=== PATIENT | male | born 1980 | race Caucasian/White ===

== ENCOUNTER 2022-12-19 00:49 | Day surgery (SDC) | payer OTHER, SELFPAY ==
[2022-12-16 13:59] VITALS: BMI 30.1
--- NOTE | 2022-12-16 14:05 | PC.NURSE ---
Report to the Outpatient Waiting Room, entrance under the green pavilion located off [facility], at time 0900 on date 12/19/22. Planned Procedure Time: 1100. Time changes happen often and if your time is changed the preop area will call you the afternoon before. - You and your visitor will be asked to self-screen and do not enter if you have any COVID symptoms. - A mask is optional within the hospital at this time. Patients may have clear liquids (water, carbonated beverages, clear teas, apple juice) until 3 hours prior to surgery with a maximum of 20 ounces. - No food from midnight until time of surgery Take the following medications with a SIP of water the morning of surgery: NONE DO NOT STOP ANY OF YOUR OTHER PRESCRIPTION MEDICATIONS PRIOR TO SURGERY?EXCEPT THE FOLLOWING Medications to discontinue per physician: KETOROLAC Date to take last dose: PER DR. NOLAND Please no make-up, nail maltese, hairspray, perfume, deodorant, or body powder the day of surgery. No jewelry (including any body piercings) or valuables the day of surgery, leave them at home. Please take a shower or bath the night before, or the morning of, surgery with an antibacterial soap. Wear comfortable, loose fitting clothing. - Jewelry must be removed prior to entering the operating room. Rings and piercings that are not removed may be cut off. - The hospital will not accept responsibility for valuables. - Please leave all valuables, including medications, at home the day of surgery. If you are going home after surgery, a licensed compactor driver must drive you home. - NO public transportation without another adult if you receive anesthesia. - We recommend that an adult stay with you for 24 hours following discharge. - We also recommend that you do not drive, make important decision, drink alcoholic beverages, or take any drugs that were not prescribed by your health care provider for at least 24 hours after your discharge time. Follow any additional instructions given to you from your surgeon. If you or anyone in your household have experienced Covid symptoms in the past week, please notify your surgeon or the nurse liaison at the phone number below for possible testing. Telephone instructions given to NADER BAH and asked if any additional questions and then verbalized understanding. Patient advised to call surgeon office or pre surgery nurse liaison [phone] if any additional questions.
[2022-12-19] VITALS (12 sets, daily range): BP systolic 128–153; BP diastolic 74–98; PULSE 63–83; RESP 13–18; TEMP 36.1–36.2; O2SAT 96–100
--- NOTE | ~2022-12-19 | XR_ITS ---
EXAMINATION: XR retrograde pyelo w/stent BI DATE: 12/19/2022 12:11 INDICATION: Bilateral internal ureteral stent exchange TECHNIQUE: Fluoroscopic images from a bilateral internal ureteral stent exchange are submitted for re view. 46 seconds of fluoroscopy time. 8 fluoroscopic images. FINDINGS: There were bilateral double-J internal ureteral stent projecting in expected position, with proximal Beaumont loop at the level of the renal pelvis and distal loop in the pelvis within the bladder lumen. IMPRESSION: 1. Bilateral internal ureteral stent exchange. Please refer to real-time procedural findings for de tails. Reviewed, dictated and finalized at location B. IMPRESSION: 1. Bilateral internal ureteral stent exchange. Please refer to real-time proc edural findings for details.
--- NOTE | ~2022-12-19 | XR_ITS ---
XR abdomen/kub 1V 12/19/2022 09:44 Indication: Renal stones. Ureteral stent. Procedure: KUB Comparison: No prior studies for comparison. Findings: There are bilateral internal ureteral stent in expected position. There are left renal ston es. There are proximal right ureteral stones. Bowel gas pattern nonobstructive. No acute osseous abno rmality. Impression: 1: Left renal and right proximal ureteral stones. Bilateral internal ureteral stents in expected posi tion. Reviewed, dictated and finalized at location B. Impression: 1: Left renal and right proximal ureteral stones. Bilateral internal ureteral s tents in expected position.
[2022-12-19] MEDS: LACTATED RINGERS 1,000 ML 30 ML IV CONT ×2 (08:32→12:17)
--- NOTE | 2022-12-19 09:29 | P.PNAN_ITS ---
Anes - Initial Pre Proc Eval Procedure: Operation Date: 12/19/22 09:30 Proposed Procedures p Cystoscopy, Bilateral Ureteroscopy, Bilateral Retrograde Pyelogram, Holmium Laser Lithotripsy with Bilateral Stent Exchange - Joel Cherry MD Date/Time: 12/19/22 09:29 Surgeon: Joel Cherry MD Pre Op Diagnosis: bilat kidney stone Patient Data Age: 42 Gender: M Height: 1.8 m Weight: 106 kg Last Vital Signs Temp 36.1 C L 12/19/22 08:00 Pulse 65 12/19/22 08:00 Resp 16 12/19/22 08:00 BP 135/83 12/19/22 08:00 Pulse Ox 96 12/19/22 08:00 O2 Del Method Room Air 12/19/22 08:00 Allergies Allergy/AdvReac Type Severity Reaction Status Date / Time amantadine [From Symmetrel] Allergy Anaphylaxis Verified 12/19/22 07:35 prochlorperazine Allergy Anaphylaxis Verified 12/19/22 07:35 [From Compazine] Home Medications Medication Instructions Recorded Confirmed Type adalimumab 40 mg/0.8 mL 40 mg subcut [id number] 12/16/22 12/16/22 History subcutaneous pen kit (Humira Pen) ketorolac 10 mg tablet 10 mg PO Q6H PRN Pain 12/16/22 12/16/22 History tamsulosin 0.4 mg capsule 0.4 mg PO DAILY 12/16/22 12/16/22 History solifenacin 5 mg tablet 5 mg PO QAM 12/19/22 12/19/22 History Patient hx anesthesia problems: none Family hx anesthesia problems: none Results Review: All pre-operative results and documents have been reviewed as part of the pre- operative evaluation. [facility] Past Medical History Medical History (Updated 12/19/22 @ 09:29 by Colin Estrada MD) Crohn's disease Obesity Surgical History Surgical History (Updated 12/19/22 @ 09:30 by Colin Estrada MD) H/O ventral hernia repair Social History Social History Smoking status: Never smoker Alcohol intake: current Alcohol use details: VERY RARE Substance use: never Substance use type: does not use Living arrangements: with family Spiritual care concerns: No Anes - Eval Final PreProcedure Day of Procedure 12/19/22 09:29 Patient weight: obese Heart: regular rate and rhythm Lungs: clear to auscultation Airway: Mallampati scale class II Neurological: alert and oriented Last oral intake: >/= 8 hours ASA classification: III Emergent: no Anesthetic plan: proceed Anesthesia type and monitoring: general LMA and standard monitoring Results Review: All pre-operative results and documents have been reviewed as part of the pre- operative evaluation. Informed Consent: The patient's anesthetic plan and its attendant risks and benefits were discussed with the patient/family/POA. Questions were solicited and answers provided to the satisfaction of the patient/family/POA.
--- NOTE | 2022-12-19 09:36 | WPDHPUPDATE1 ---
History and Physical Update Update Date/Time: 12/19/22 09:36 History and Physical has been reviewed, including an updated exam of the patient. There are NO changes in the patient's condition. Risks, benefits, and alternatives have been discussed and questions answered. Patient agrees to proceed with procedure. proceed with cysto, bilateral ureteroscopy, bilateral retrogrades, bilateral stone extraction with possible holmium laser and stent exchange
[2022-12-19] MEDS: ceFAZolin 2 GM/D5W 50 ML 2 GM/50 ML BAG IVPB (10:47)
[2022-12-19] MEDS: LIDOCAINE HCL 2% GEL UROJET 10 ML PKG MUCOUS MEM (11:09)
--- NOTE | 2022-12-19 12:13 | P.OP_ITS ---
Procedure Note - Detailed Date of Procedure 12/19/22 Pre-op Diagnosis bilat kidney stone and ureteral stones Post-op Diagnosis Same Procedure Performed Cystoscopy, bilateral retrograde pyelograms, bilateral ureteroscopy with holmium laser of ureteral stones, renal stones and stone extraction, bilateral ureteral stent exchange 4.8 contour stent Surgeon Joel Cherry MD Anesthesia General Description of Procedure Patient is taken to the operative suite correctly identified. Once anesthesia was obtained was placed in dorsal lithotomy position prepped draped usual sterile fashion. Nineteen Micronesian scope inserted the bladder there is no tumors. The left stent was grasped and brought out the meatus. A guidewire was inserted into the left collecting system through the stent. A rigid ureteral scope was then passed there was no distal stones noted. A ureteral access sheath was placed. Mini flexible ureteral scope was inserted. He was noted to have some impacted stone in the left ureter we needed to laser this in order to fragmented where we could retrieve it. We then passed the scope into the kidney. He had several calyceal stones which we lasered/dusted. We then did a pyelogram and placed a 4.8 contour stent with the proximal end coiled in the left renal pelvis and the distal in the bladder. The right ureteral stent was then grasped and brought out to the meatus. Guidewire was passed through that. Rigid ureteral scope was inserted. A its distal stone was noted and grasped wi th an escape basket and sent for analysis. Ureteral access sheath was then placed. Mini flexible ureteral scope was inserted. He had multiple large stones at the UPJ area. Using the 200 micron fiber we lasered these and retrieved the largest fragments. Reinspection of the kidney revealed some small stones which we also lasered. Some were too small to grasp. Pyelogram was also performed. 4.8 Micronesian contour stent was then placed with the proximal end coiled in the right renal pelvis and the distal in the bladder. Bladder was drained. 2% viscous lidocaine was inserted into the urethra niece taken recovery stable condition. We discharged home with pain meds antibiotics. Plan on removing those stents in late next week or the following week. He is to call for that appointment. This could be sedation please send a copy of this to my office Drains Yes Packing No Pathology Yes Complications No immediate complications Condition Stable Disposition PACU
[2022-12-19] MEDS: ONDANSETRON INJ 4 MG/2 ML VIAL IV PUSH (12:30)
[2022-12-19] MEDS: fentaNYL CITRATE INJ (*CRX) 100 MCG/2 ML VIAL 25 MCG IV PUSH ×8 (12:52→13:34)
[2022-12-19] MEDS: diphenhydrAMINE HCl INJ 50 MG/ML VIAL 25 MG IV PUSH (13:54)
[2022-12-19] MEDS: SCOPOLAMINE 1.5 MG PATCH TRANSDERM (13:54)
[2022-12-19] MEDS: oxyCODONE HCL (*CRX) 5 MG TAB IR PO (14:35)
== END 2022-12-19 15:07 | disposition home or self-care (01) ==
PROVIDERS: PCP Family Medicine; Visit Provider Urology
PROC: (CPT 52352; principal; 2022-12-19 09:30)
DX: N20.2 Calculus of kidney with calculus of ureter (principal); K50.90 Crohn's disease, unspecified, without complications; Z79.620 Long term (current) use of immunosuppressive biologic; E66.9 Obesity, unspecified; Z68.32 Body mass index [BMI] 32.0-32.9, adult
CPT/HCPCS: 52356; 74018; 74420; 82365; 88300; A9270; C1769; C1894; C2617; J0690; J1100; J1200; J2250; J2405; J2704; J3010; J7120